=== PATIENT | male | born 1955 | race Caucasian/White ===

== ENCOUNTER → 2018-01-14 | Outpatient (CLI) | payer OTHER ==
[~2018-01-14] MED LIST: IOPAMIDOL 370 MG/ML 200 ML INFUS..BTL INJ ONE; SODIUM CHLORIDE 0.9% 250ML 250 ML ONE
[2018-01-14 10:18] LABS: BLOOD UREA NITROGEN 18 mg/dL (7-26); BUN/CREATININE RATIO 22 (6-25); CREATININE, SERUM 0.83 mg/dL (0.72-1.25); EST GLOMERULAR FILTRATION RATE > 60 ML/MIN (60-)
--- NOTE | 2018-01-14 15:28 | Diagnostic Imaging Report ---
EXAM: CT Abdomen and Pelvis WITHOUT and WITH contrast INDICATION: \[id number] \S\[id number] \S\MALIGNANT NEOPLASM OF BLADDER / HEM COMPARISON: None. TECHNIQUE: Abdomen and pelvis were scanned utilizing a multidetector helical scanner from the lung base to the pubic symphysis after administration of IV contrast. Coronal and sagittal reformations were obtained. Hematuria protocol was performed. Scan was performed pre- in supine position and nephrogenic/excretory phase with a 10 minute split bolus in prone position. IV CONTRAST: 150 mL of Isovue 370 ORAL CONTRAST: Water COMPLICATIONS: None RADIATION DOSE: Total DLP: 979.64 mGy*cm Estimated effective dose: (DLP x 0.015 x size factor) mSv CTDIvol has been reviewed. It is below the limits set by the Radiation Protocol Committee (RPC). FINDINGS: LINES and TUBES: None. LOWER THORAX: 2.9 x 3.3 cm well-circumscribed, partially visualized fluid density lesion adjacent to the right heart border, without significant enhancement on postcontrast images (series 3, image 3). Lung bases are otherwise clear. Mild cardiomegaly. HEPATOBILIARY: No focal hepatic lesions. No biliary ductal dilation. GALLBLADDER: No radio-opaque stones or sludge. No wall thickening. SPLEEN: No splenomegaly. PANCREAS: No focal masses or ductal dilatation. ADRENALS: No adrenal nodules KIDNEYS/URETERS: Kidneys: Symmetrical enhancement. No hydronephrosis. Mild bilateral perinephric stranding. Bilateral renal vascular calcifications. Cyst: 1.8 cm fluid density lesion in the superior left kidney (series 6, image 70), which does not show significant enhancement. 7 mm hypodense lesion in the left inferior pole (series 6, image 97), which is too small to characterize. Mass: No solid enhancing masses.. Stones: 3 mm calcific density in the left inferior pole (series 3, image 90), may represent a nonobstructing calculus versus vascular calcification. Upper collecting systems: No irregularities or filling defects. Ureters: The focus of ossification of the right ureter and proximal and mid left ureters. No filling defects, strictures or extrinsic compressions. Bladder: No wall thickening or focal lesions. GI TRACT: No bowel dilation or evidence of obstruction. Colonic diverticulosis involving the ascending, transverse and distal descending and sigmoid colon, without diverticulitis. Appendix is well identified and normal in caliber. PELVIC ORGANS/BLADDER: Prostate and seminal vesicles are unremarkable. LYMPH NODES: No lymphadenopathy. VESSELS: Atherosclerotic calcification of the abdominal aorta and iliac vessels. PERITONEUM / RETROPERITONEUM: No free air or fluid. BONES: No aggressive lytic lesions. SOFT TISSUES: Unremarkable. IMPRESSION: 1. No solid enhancing renal masses. No filling defects in the opacified portions of the genitourinary tract. No focal bladder lesions or wall thickening. 2. No adenopathy or metastatic disease in the abdomen or pelvis.. 3. 3 mm calcific density in the left renal inferior pole may represent a nonobstructing calculus versus vascular calcification. No ureteral calculi, hydronephrosis or obstruction. 4. 3.3 cm well-circumscribed partially visualized fluid density lesion adjacent to the right heart border is most consistent with a pericardial cyst. A bronchogenic cyst is a less likely diagnostic consideration. Signed by: Dr. Vinod Silva M.D. on 01/14/2018 3:24 PM
== END ==
LOC: CT 09:26
PROVIDERS: ATTEND Urology
DX: R31.0 Gross hematuria (principal); C67.9 Malignant neoplasm of bladder, unspecified
CPT/HCPCS: 36415; 74178; 82565; 84520; J7050; Q9967

== ENCOUNTER → 2019-11-24 | Outpatient (CLI) | payer BC ==
[2019-11-24 09:35] LABS: BLOOD UREA NITROGEN 18 mg/dL (7-26); BUN/CREATININE RATIO 20 (6-25); EST GLOMERULAR FILTRATION RATE > 60 ML/MIN (60-)
--- NOTE | 2019-11-24 12:06 | Diagnostic Imaging Report ---
CT of the abdomen and pelvis, without and with contrast. History: Malignant neoplasm of bladder. Comparison: CT angiogram from 01/15/1980. Technique: Multidetector CT scanning of the abdomen and pelvis was performed from the level of the lung bases to the inferior pubic rami before and after intravenous administration of contrast according to the hematuria/CT urogram protocol. Coronal and sagittal multiplanar reformations as well as 3-D reformations were obtained. RADIATION DOSE: Total DLP: 1441.30 mGy*cm Dose modulation, iterative reconstruction, and/or weight based adjustment of the mA/kV was utilized to reduce the radiation dose to as low as reasonably achievable. FINDINGS: Stable appearing, partially visualized fluid density lesion again noted adjacent to the right heart border. The remaining visualized intrathoracic contents demonstrate no significant abnormalities. The liver is normal in size and attenuation without evidence for focal abnormality. The gallbladder is unremarkable. There is no biliary ductal dilatation. The stomach, spleen, pancreas, and bilateral adrenal glands are unremarkable. The kidneys are normal in size and location and enhance/excrete contrast material properly. There is a stable 1.8 cm simple cyst identified within the superior pole of the left kidney. A stable 8 mm cyst is identified within the inferior pole the left kidney. There is no evidence for solid/enhancing mass. Stable vascular calcifications are noted bilaterally. No definite renal calculi appreciated. There is a single collecting system and ureter identified bilaterally. The ureters are normal in course and caliber without evidence for filling defect, stricture, or extrinsic compression. The urinary bladder demonstrates no of wall thickening or filling defect. The prostate is unremarkable. The abdominal aorta is normal course and caliber with atherosclerotic calcifications. The IVC is unremarkable. Please note evaluation the bowel is limited without the use of enteric contrast material. The visualized loops small large bowel demonstrate no evidence of obstruction or inflammation. The appendix is visualized and appears unremarkable. Diverticula are noted within the sigmoid and descending colon without evidence for acute diverticulitis. There is no ascites or intraperitoneal free air. No abnormally enlarged lymph nodes are identified within the abdomen or pelvis. The osseous structures demonstrate no evidence for acute fracture or destructive process. The extraperitoneal soft tissues are unremarkable. IMPRESSION: No evidence for solid renal mass, obstructive uropathy, or other abnormality within the genitourinary tract. No evidence for metastatic disease within the abdomen or pelvis. Signed by: Dr. Camron Razo MD on 11/24/2019 12:02 PM
== END ==
LOC: CT 08:23
PROVIDERS: ATTEND Urology
DX: C67.9 Malignant neoplasm of bladder, unspecified (principal)
CPT/HCPCS: 36415; 74178; 82565; 84520; J7050; Q9967